=== PATIENT | male | born 2000 | race Two or more races ===

== ENCOUNTER 2024-08-13 19:15 | Inpatient (IN) | payer BC ==
[~2024-08-13] VITALS: Ht 177.8 cm; Wt 108.5 kg
[2024-08-13] MEDS ORDERED: acetaminophen 325mg tablet PO PRN ×4 (20:20→21:55)
[2024-08-13] MEDS ORDERED: magnesium hydroxide 30ml (MOM) UD suspension PO PRN ×2 (20:20→20:55)
[2024-08-13] MEDS ORDERED: mag hydrox/Alum hydrox/simeth 30ml oral suspension PO PRN ×2 (20:20→20:55)
[2024-08-13] MEDS ORDERED: loperamide 2mg capsule PO PRN ×2 (20:55→21:55)
[2024-08-13] MEDS ORDERED: ondansetron 4mg rapidly disintigrating tab PO PRN (21:55)
[2024-08-13] MEDS ORDERED: diphenhydrAMINE 25mg capsule PO PRN (21:55)
[2024-08-13] MEDS: traZODone 50mg tablet PO PRN (22:26)
[2024-08-13] MEDS: chlorproMAZINE 25mg tablet PO PRN (22:26)
[2024-08-13 22:30] VITALS: RESP 16; O2SAT 98
[2024-08-13 22:41] VITALS: BP 131/77; PULSE 98; RESP 16; TEMP 98.7; O2SAT 98
[2024-08-13] MEDS: hydrOXYzine 25 MG tablet PO PRN (23:32)
[2024-08-13] MEDS: traZODone 50mg tablet PO ONE (23:34)
[2024-08-14] MEDS ORDERED: NO HOME MEDS (04:00)
[2024-08-14 07:00] VITALS: RESP 16; O2SAT 96
[2024-08-14 08:00] VITALS: BP 146/87; PULSE 110; RESP 16; TEMP 99.5; O2SAT 96
[2024-08-14 08:16] LABS: BASOPHILS # (AUTO) 0.1 X10'3 (0-0.2); BASOPHILS % (AUTO) 0.7 % (0-1); EOSINOPHILS # (AUTO) 0.1 X10'3 (0-0.9); EOSINOPHILS % (AUTO) 0.5 % (0-6); HEMATOCRIT 47.8 % (42.0-52.0); HEMOGLOBIN 16.9 g/dl (14.0-17.9); LYMPHOCYTES # (AUTO) 2.3 X10'3 (1.1-4.8); LYMPHOCYTES % (AUTO) 19.6 % (21-51); MEAN CORPUSCULAR HEMOGLOBIN 31.2 PG (27.0-31.0); MEAN CORPUSCULAR HGB CONC 35.3 g/dL (33.0-36.5); MEAN CORPUSCULAR VOLUME 88.3 FL (78-98); MEAN PLATELET VOLUME 8.9 FL (7.4-10.4); MONOCYTES # (AUTO) 0.9 X10'3 (0-0.9); MONOCYTES % (AUTO) 7.8 % (2-12); NEUTROPHILS # (AUTO) 8.4 X10'3 (1.8-7.7); NEUTROPHILS % (AUTO) 71.4 % (42-75); PLATELET COUNT 192 X10'3 (140-440); RED BLOOD COUNT 5.41 X10'6 (4.70-6.10); RED CELL DISTRIBUTION WIDTH 14.2 % (11.5-14.5); WHITE BLOOD COUNT 11.7 X10'3 (4.5-11.0)
[2024-08-14 08:59] LABS: ALANINE AMINOTRANSFERASE 78 U/L (12-78); ALBUMIN 3.3 G/DL (3.4-5.0); ALBUMIN/GLOBULIN RATIO 0.9 (1.1-1.5); ALKALINE PHOSPHATASE 59 IU/L (46-116); ANION GAP 10 (8-16); ASPARTATE AMINO TRANSFERASE 36 U/L (10-37); BILIRUBIN,TOTAL 0.5 MG/DL (0.1-1.0); BLOOD UREA NITROGEN 14 MG/DL (7-18); BUN/CREATININE RATIO 16.5 (10.0-20.0); CALCIUM 8.5 MG/DL (8.5-10.1); CHLORIDE 106 MMOL/L (99-107); CHOL/HDL RATIO 2.4 (0.00-4.99); CHOLESTEROL 161 MG/DL (0-200); CREATININE 0.85 MG/DL (0.60-1.10); GLUCOSE 105 MG/DL (70-104); HDL CHOLESTEROL 66 MG/DL (35-60); HEMOGLOBIN A1C 5.3 % (4.5-6.2); LDL CHOLESTEROL 80 MG/DL (50-100); POTASSIUM 3.7 MMOL/L (3.5-5.1); SODIUM 140 MMOL/L (135-145); TOTAL CARBON DIOXIDE 24.5 MMOL/L (24-32); TOTAL PROTEIN 6.9 G/DL (6.4-8.2); TRIGLYCERIDES 46 MG/DL (20-135); eCRCL 138 ML/MIN; eGFR > 90 ML/MIN
[2024-08-14] MEDS: acetaminophen 325mg tablet PO PRN (12:22)
[2024-08-14 19:00] VITALS: RESP 20; O2SAT 98
[2024-08-14] MEDS: mag hydrox/Alum hydrox/simeth 30ml oral suspension PO PRN (19:08)
[2024-08-14 20:02] VITALS: BP 133/80; PULSE 102; RESP 20; TEMP 98.4; O2SAT 96
[2024-08-15 07:00] VITALS: RESP 16; O2SAT 97
[2024-08-15] MEDS: pantoprazole 40mg Tablet.DR PO SCH (07:37)
[2024-08-15 08:00] VITALS: BP 116/60; PULSE 83; RESP 16; TEMP 99.1; O2SAT 97
[2024-08-15] MEDS: LORazepam 1 MG tablet PO ONE ×3 (11:10→20:38)
[2024-08-15 19:00] VITALS: RESP 18; O2SAT 95
[2024-08-15 20:08] VITALS: BP 133/80; PULSE 103; RESP 18; TEMP 98.2; O2SAT 95
[2024-08-15] MEDS: diphenhydrAMINE 25mg capsule PO SCH (20:38)
[2024-08-16 07:33] VITALS: BP 127/75; PULSE 82; RESP 16; TEMP 98.4; O2SAT 99
[2024-08-16 08:00] VITALS: RESP 16; O2SAT 99
[2024-08-16] MEDS: traMADol 50MG tablet PO ONE ×2 (09:31→12:20)
[2024-08-16 09:51] LABS: BASOPHILS # (AUTO) 0.1 X10'3 (0-0.2); BASOPHILS % (AUTO) 1.1 % (0-1); EOSINOPHILS # (AUTO) 0.1 X10'3 (0-0.9); LYMPHOCYTES % (AUTO) 23.2 % (21-51); MEAN PLATELET VOLUME 8.5 FL (7.4-10.4); MONOCYTES # (AUTO) 0.9 X10'3 (0-0.9); MONOCYTES % (AUTO) 10.4 % (2-12); NEUTROPHILS # (AUTO) 5.5 X10'3 (1.8-7.7); NEUTROPHILS % (AUTO) 64.3 % (42-75); PLATELET COUNT 210 X10'3 (140-440); WHITE BLOOD COUNT 8.6 X10'3 (4.5-11.0)
[2024-08-16 10:12] LABS: ALANINE AMINOTRANSFERASE 124 U/L (12-78); ALBUMIN 3.5 G/DL (3.4-5.0); ALBUMIN/GLOBULIN RATIO 0.9 (1.1-1.5); ALKALINE PHOSPHATASE 65 IU/L (46-116); ANION GAP 7 (8-16); ASPARTATE AMINO TRANSFERASE 38 U/L (10-37); BILIRUBIN,TOTAL 0.5 MG/DL (0.1-1.0); BLOOD UREA NITROGEN 13 MG/DL (7-18); BUN/CREATININE RATIO 12.9 (10.0-20.0); CALCIUM 8.9 MG/DL (8.5-10.1); CHLORIDE 105 MMOL/L (99-107); CREATININE 1.01 MG/DL (0.60-1.10); GLUCOSE 92 MG/DL (70-104); POTASSIUM 4.2 MMOL/L (3.5-5.1); SODIUM 138 MMOL/L (135-145); TOTAL CARBON DIOXIDE 25.7 MMOL/L (24-32); TOTAL PROTEIN 7.3 G/DL (6.4-8.2); eCRCL 116 ML/MIN; eGFR > 90 ML/MIN
[2024-08-16 10:18] LABS: LIPASE 25 U/L (16-77)
[2024-08-16 10:56] LABS: HEMOGLOBIN 17.9 g/dl (14.0-17.9); MEAN CORPUSCULAR HGB CONC 35.1 g/dL (33.0-36.5); MEAN CORPUSCULAR VOLUME 88.1 FL (78-98); RED BLOOD COUNT 5.79 X10'6 (4.70-6.10); RED CELL DISTRIBUTION WIDTH 14.1 % (11.5-14.5)
[2024-08-16 19:00] VITALS: RESP 18; O2SAT 98
[2024-08-16 19:36] VITALS: BP 128/80; PULSE 101; RESP 18; TEMP 97.7; O2SAT 98
[2024-08-16] MEDS: ibuprofen tablet 400 MG TABLET PO PRN (19:38)
[2024-08-17 07:30] VITALS: BP 77/53; PULSE 76; RESP 16; TEMP 97.8; O2SAT 96
[2024-08-17 07:44] VITALS: BP 118/88
[2024-08-17 08:00] VITALS: RESP 16; O2SAT 96
[2024-08-17 18:40] VITALS: RESP 16; O2SAT 97
[2024-08-17 19:39] VITALS: BP 133/81; PULSE 99; RESP 18; TEMP 97.9; O2SAT 97
[2024-08-17] MEDS: QUEtiapine 25mg tablet PO SCH (20:32)
[2024-08-18 07:00] VITALS: RESP 12; O2SAT 94
[2024-08-18 08:00] VITALS: BP 118/65; PULSE 74; RESP 12; TEMP 98.5; O2SAT 94
[2024-08-18] MEDS: diphenhydrAMINE 25mg capsule PO ONE (10:46)
[2024-08-18] MEDS: LIDOcaine 2% Viscous 15ml cup MM ONE (10:47)
[2024-08-18] MEDS: traMADol 50MG tablet PO PRN (14:29)
[2024-08-18 19:20] VITALS: RESP 18; O2SAT 97
[2024-08-18 19:27] VITALS: BP 148/84; PULSE 100; RESP 17; TEMP 97.8; O2SAT 97
[2024-08-18] MEDS: QUEtiapine 25mg tablet PO SCH (20:34)
[2024-08-18] MEDS: quetiapine 100mg tablet PO SCH (20:35)
[2024-08-18] MEDS: diatr meglu/diatrizoate 30ml oral sol.-(3 dose) bottle PO SCH (20:35)
[2024-08-19 07:00] VITALS: RESP 18; O2SAT 96
[2024-08-19] MEDS: pantoprazole 40mg Tablet.DR PO SCH (07:34)
[2024-08-19] MEDS: ESCITALOPRAM 10 mg tablet 10 MG TABLET PO SCH (07:34)
[2024-08-19 08:49] VITALS: BP 108/65; PULSE 61; RESP 18; TEMP 97.2; O2SAT 96
[2024-08-19] MEDS: gabapentin 400mg capsule PO SCH ×2 (16:55→21:00)
[2024-08-19 19:00] VITALS: RESP 20; O2SAT 98
[2024-08-19 20:00] VITALS: BP 115/80; PULSE 80; RESP 20; TEMP 97.6; O2SAT 98
[2024-08-20 07:00] VITALS: RESP 15; O2SAT 97
[2024-08-20 08:00] VITALS: BP 120/63; PULSE 67; RESP 15; TEMP 98.2; O2SAT 97
[2024-08-20 19:00] VITALS: RESP 14; O2SAT 96
[2024-08-20 20:00] VITALS: BP 135/75; PULSE 94; RESP 14; TEMP 98.9; O2SAT 96
[2024-08-21 07:00] VITALS: RESP 14; O2SAT 97
[2024-08-21 08:00] VITALS: BP 104/51; PULSE 71; RESP 14; TEMP 98.3; O2SAT 97
[2024-08-21] MEDS: ESCITALOPRAM 10 mg tablet 10 MG TABLET PO SCH (08:38)
[2024-08-21 19:00] VITALS: RESP 16; O2SAT 96
[2024-08-21 20:00] VITALS: BP 112/81; PULSE 103; RESP 16; TEMP 98.3; O2SAT 96
[2024-08-22 07:45] VITALS: RESP 16; O2SAT 97
[2024-08-22 08:00] VITALS: BP 91/60; PULSE 82; RESP 16; TEMP 97.8; O2SAT 97
[2024-08-22 19:23] VITALS: BP 118/70; PULSE 89; RESP 16; TEMP 97.9; O2SAT 97
[2024-08-22 20:00] VITALS: RESP 16; O2SAT 97
[2024-08-23 07:30] VITALS: BP 110/55; PULSE 82; RESP 16; TEMP 97.5; O2SAT 99
[2024-08-23 08:00] VITALS: RESP 16; O2SAT 99
[2024-08-23] MEDS: aripiprazole 5mg tablet PO SCH (08:19)
[2024-08-23] MEDS: diphenhydrAMINE 25mg capsule PO PRN (10:01)
[2024-08-23 19:00] VITALS: RESP 16; O2SAT 96
[2024-08-23 20:00] VITALS: BP 128/85; PULSE 80; RESP 16; TEMP 98.5; O2SAT 96
[2024-08-24 07:00] VITALS: RESP 18; O2SAT 97
[2024-08-24 08:00] VITALS: BP 93/66; PULSE 65; RESP 18; TEMP 98.4; O2SAT 97
[2024-08-24] MEDS ORDERED: ESCI-8 PO (15:45)
[2024-08-24] MEDS ORDERED: PANT40TA54 PO (15:45)
[2024-08-24] MEDS ORDERED: GABA-535 PO (15:45)
[2024-08-24] MEDS ORDERED: QUET100T34 PO (15:45)
[2024-08-24] MEDS ORDERED: ARIP5TAB53 PO (15:45)
[2024-08-24 19:00] VITALS: BP 122/91; PULSE 82; RESP 16; RESP 20; TEMP 98.8; O2SAT 97
== END 2024-08-24 19:50 | disposition home or self-care (01) | DRG 885 ==
LOC: ADULT MH 19:15 → UNDOADMIN 19:15 → ADULT MH 08-14 02:37
PROVIDERS: ADMIT Psychiatry & Neurology Psychiatry; ATTEND Psychiatry & Neurology Psychiatry
PROC: GZHZZZZ Group Psychotherapy (ICD-10-PCS; principal; 2024-08-24)
DX: F20.9 Schizophrenia, unspecified (principal); F06.1 Catatonic disorder due to known physiological condition; R45.851 Suicidal ideations; R10.13 Epigastric pain; F43.10 Post-traumatic stress disorder, unspecified; Z79.899 Other long term (current) drug therapy
CPT/HCPCS: 36415; 74018; 74176; 76700; 80053; 80061; 83036; 83690; 84484; 85025; 87081; 99285; Q0161; Q0163; Q0177; Q9963

== ENCOUNTER 2025-01-22 13:32 | Inpatient (IN) | payer BC, MEDICAID ==
[~2025-01-22] VITALS: Ht 177.8 cm; Wt 113.0 kg
[~2025-01-22 13:32] MED LIST: ARIP5TAB53 PO; ESCI-8 PO; GABA-535 PO; PANT40TA54 PO; QUET100T34 PO
[2025-01-22] MEDS ORDERED: magnesium hydroxide 30ml (MOM) UD suspension PO PRN (15:10)
[2025-01-22] MEDS ORDERED: loperamide 2mg capsule PO PRN (15:10)
[2025-01-22] MEDS ORDERED: PANT40TA54 PO (16:45)
[2025-01-22] MEDS ORDERED: QUET200T PO (16:45)
[2025-01-22] MEDS ORDERED: GABA-535 PO (16:45)
[2025-01-22] MEDS ORDERED: ESCI20TA39 PO (16:45)
[2025-01-22] MEDS ORDERED: ARIP5TAB12 PO (16:45)
[2025-01-22 19:00] VITALS: BP 144/92; PULSE 101; RESP 18; TEMP 97.3; O2SAT 95
[2025-01-22] MEDS: mag hydrox/Alum hydrox/simeth 30ml oral suspension PO PRN (20:27)
[2025-01-23 07:00] VITALS: RESP 16; O2SAT 95
[2025-01-23] MEDS: pantoprazole 40mg Tablet.DR PO SCH (07:07)
[2025-01-23 08:00] VITALS: BP 153/97; PULSE 100; RESP 16; TEMP 99.2; O2SAT 95
[2025-01-23 10:31] LABS: CHOL/HDL RATIO 3.3 (0.00-4.99); LDL CHOLESTEROL 105 MG/DL (50-100)
--- NOTE | 2025-01-23 15:52 | HISTORY AND PHYSICAL ---
History of Present Illness History of Present Illness H&P Admission date: 01/22/25 Length of stay: 1 day Status: 5150 CC: improving anxiety, being happier Admitted on 01/22/25 on a 5150 for danger to self, was acting erratically- stopped medication a few months ago. Endorses AH. Per nursing staff today he slept 0 hours last night- the entire night pacing in anel halls- shaking out his arms- was given trazodone 100 mg, hydroxyzine, has been pacing the halls this morning. States that he hasnt been happy recently, states he was brought to the hospital because he was really anxious. States he stopped the medication because he was feeling better states he doesn't want to be on medication. When asked if he would be willing to stay in the hospital on a voluntary basis, he stated he wants to get out of the hospital tomorrow. When asked if he was experiencing hallucinations he said no connor. Denies that he has mental health symptoms requiring hospitalization. States he will refuse to take medication while in the hospital, when asked why he said I get nervous. Psychiatric History Age of initial treatment: 23 for really bad anxiety Outpatient: not currently Inpatient: [facility] on 07/2024 for psychosis, previously hospitalized in [place], up to a total of 3-4 previous hospitalizations. 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 Access to firearms: denies Hx of suicide attempts: denies Hx of self-harm: hx of cutting wrists Hx of violence: denies Legal hx: deneis Current Psych Medications: none Historical Psych Medications: aripiprazole, gabapentin, escitalopram, quetiapine, vyvanse Substance Use History Over the counter medications: Caffeine: denies Nicotine: denies Alcohol: a beer (once per week) Cannabis: denies Stimulants: denies Opioids: denies Hx of IVDU: denies Other (Inhalants, Hypnotics, Hallucinogens, Rx): denies DUI: denies treatment/rehab hx: denies Gambling: denies No known hx of IVDU No known hx of meeting criteria for a substance use disorder Social history Born and raised [facility], parents , old brother. 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 Income/rent/concerns about paying bills or feeding family: Hx: denies Mental Status Evaluation General Appearance: disheveled hair, beanie sweat pants, Eye contact: intermittent Demeanor: hyperfocused on discharging, guarded Orientation: to person, place, time, situation Speech: Appropriate rate/rhythm/volume Psychomotor Activity: tense- pacing the unit Abnormal Body Movements: none observed Gait: steady Mood: anxious Affect:flat Suicidality: denies suicidal ideation Homicidally: denies Thought content: paranoia Thought process: disorganized Thought perceptions: auditory hallucinations/visual hallucinations Memory: impairment notable Attention: preoccupied Insight: poor Judgment: limited - Review of symptoms Denies malaise, other flu like symptoms Denies falls, fatigue, weakness, confusion, dizziness, memory loss Denies tingling/numbness, tremor Denies SOB, chest pain, palpitations, fainting Denies nausea, diarrhea, constipation Denies chronic pain All other systems reviewed negative - Current Medical Problems: None noted Medical History Cardiac HX: Denies TBI Hx: denies Seizure Hx: denies FAIZAN Hx: denies - Allergies: Coded Allergies: No Known Allergies (Unverified , 08/13/24) Past Family History Patient History: Patient reports no known family medical history. Past Social History Smoking: Quit less than 1 year Assessment/Plan Problems/Diagnosis: (1) Schizoaffective disorder, bipolar type Diagnoses Schizoaffective disorder, bipolar type, manic - Assessment Based on initial evaluation, including interview and history obtained today, patient appears to meet criteria for schizoaffective disorder, has been off his medication for a few months, was preoccupied on assessment- appeared to be interacting with unseen things in the room. Pacing the unit, did not sleep last night even with medication. Was guarded and paranoid, hyperfocused on going home. Will start paliperidone for treatment of schizoaffective disorder, current episode manic. Will start lorazepam to help with anxiety/agitation/sleep. Attained a limited degree of information from the patient today, will reach out to family to better understand his current illness. Safety risk: low risk of imminent self-harm, low risk of externalized violent behaviors Plan Start paliperidone ER 6 mg po QHS Start lorazepam 1 mg po Q6 hours for anxiety/agitation/sleep Continue Q15 min checks Continue Groups/Milieu Engagement Discharge Plan: to home with scheduled follow ups for outpatient therapy and medication management Access to firearms: Spent approximately 90 minutes reviewing records and test results, assessing and treatment planning, completing care coordination and documenting the encounter. Discussed risks, including possible adverse effects, and benefits of treatment recommendations including no treatment. Voice recognition software may have been used to dictate this note. There may be errors due to use of such software. Reporting of serious errors is appreciated. CODING VISIT-PSYCHIATRY Date of Service: Jan 23, 2025 Billing Provider: MARILYN VASQUEZ DNP Psych Common Visit Codes: [id number] DIAG EVAL W/MED SRVCS MARILYN VASQUEZ DNP Jan 23, 2025 15:51
[2025-01-23 19:38] VITALS: BP 162/95; PULSE 114; RESP 18; TEMP 98.7; O2SAT 97
--- NOTE | 2025-01-23 20:03 | CONSULTATION REPORT - RESIDENT ---
Consult Providers to CC Resident Creating Document: BAUTISTA HERNANDEZ, RES CC: ELISA GOLDSMITH MD History of Present Illness Reason for Admit\Complaint: ANXIETY History of Present Illness A 25-year-old male with no past medical history was admitted to the Mental Health unit in view of danger to self, erratic behavior and stopped taking medications few months ago. Patient endorsed anxiety, shaking of his arms and pacing in the halls on the morning of admission. Hospitalist team is following the patient for any medical complaints or past medical history. Allergies: Coded Allergies: No Known Allergies (Unverified , 08/13/24) Home Medications Home Medications Active Pantoprazole Sodium 40 Mg Tablet.dr 40 Mg PO BKF 30 Days Quetiapine Fumarate 100 Mg Tablet 150 Mg PO HS 30 Days Reported Gabapentin 400 Mg Capsule 1 Cap PO Q8H 30 Days Escitalopram Oxalate 20 Mg Tablet 1 Tab PO DAILY 30 Days Abilify* (Aripiprazole) 5 Mg Tablet 5 Mg PO DAILY Past Medical History Past Medical History Schizophrenia Past Surgical History Surgical History Comment None Family History Family History: Patient reports no known family medical history. Past Social History Social History Comment Denies alcohol, IV drug abuse, tobacco use Lives at home ROS ROS All other systems reviewed in full and negative except for the pertinent positives mentioned in HPI Exam Vitals: Vital Signs Date Time Temp Pulse Resp B/P (MAP) Pulse Ox O2 Delivery O2 Flow Rate FiO2 01/23/25 19:38 98.7 114 18 162/95 (117) 97 Room Air General: General: Alert, awake, oriented, not in acute distress HEENT: PERRLA, no icterus, pallor, lymphadenopathy, carotid bruit Respiratory system: Bilateral vesicular breath sounds heard, no adventitious breath sounds CVS: S1-S2 heard, no murmurs/rubs/gallop GI: Soft, nontender, no organomegaly, no guarding/rigidity, bowel sounds present Neuro: No focal neurological deficits present Extremities: No edema cyanosis clubbing/deformities Skin: Warm and dry Psych: Anxious, dull Additional Plan Assessment: A 25-year-old male with past medical history of schizophrenia presented to the ED in view of anxiety. Patient is admitted to the Mental Health unit in view of schizoaffective disorder, bipolar type. Hospitalist team is following the patient for any medical complaints. Plan: Schizoaffective disorder, bipolar type, manic Management per psychiatrist Mildly elevated LDL, does not require intervention at this moment Follow up with CBC with differential, CMP, urinalysis Disposition: Follow up with the above labs, continue care and psychiatric health unit. Hospitalist team we will continue to follow up with the patient's review labs that has been ordered today. Bautista Hernandez MD Internal Medicine, PGY 2 Date of Service: Jan 23, 2025 Billing Provider: ELISA GOLDSMITH MD, SIVA, RES Jan 23, 2025 20:03
[2025-01-23] MEDS: PALIPERIDONE 3 MG TAB.ER.24 PO SCH (20:19)
[2025-01-23 20:38] LABS: MEAN PLATELET VOLUME 8.5 FL (7.4-10.4); RED CELL DISTRIBUTION WIDTH 13.2 % (11.5-14.5)
[2025-01-23 20:55] LABS: CREATININE 1.32 MG/DL (0.60-1.10); TOTAL CARBON DIOXIDE 27.0 MMOL/L (24-32); eCRCL 88 ML/MIN; eGFR 66 ML/MIN
[2025-01-24 07:00] VITALS: RESP 16; O2SAT 95
[2025-01-24 08:00] VITALS: BP 144/115; PULSE 73; RESP 16; TEMP 99.4; O2SAT 95
--- NOTE | 2025-01-24 14:42 | PROGRESS NOTE ---
Progress Note Dictate Providers to CC ~ Progress Note: Admission date: 01/22/25 Length of stay: 2 days Status: 5150 HPI: Admitted on 01/22/25 on a 5150 for danger to self, was acting erratically- stopped medication a few months ago. Psychiatric History Age of initial treatment: 23 for really bad anxiety Outpatient: [facility] (missed last months appointment) Inpatient: [facility] on 07/2024 for psychosis, previously hospitalized in [place], up to a total of 3-4 previous hospitalizations. 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 Access to firearms: denies Hx of suicide attempts: denies Hx of self-harm: hx of cutting wrists Hx of violence: denies Legal hx: deneis Current Psych Medications: none Historical Psych Medications: aripiprazole, gabapentin, escitalopram, quetiapine, vyvanse Substance Use History Over the counter medications: Caffeine: denies Nicotine: denies Alcohol: a beer (once per week) Cannabis: denies Stimulants: denies Opioids: denies Hx of IVDU: denies Other (Inhalants, Hypnotics, Hallucinogens, Rx): denies DUI: denies treatment/rehab hx: denies Gambling: denies No known hx of IVDU No known hx of meeting criteria for a substance use disorder Social history Born and raised [facility], parents , old brother. Unstable childhood including some periods of homelessness, was primarily raised by mother who is bipolar. 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 HOSPITAL COURSE: Poor sleep 0-2 hours initial few days in the hospital, Today on Assessment: States he is really anxious today when asked what about he stated I dont know then directed his gaze to the floor and started to move his hands back and for like he was rolling out cookie dough. Endorses that he has had some really really bad anxiety with the stuff of life States he feels really suicidal, no specific plan. States he would like to stay in the hospital in order to feel better, I would like to stay until july or even longer Would like his dad to know that he dosnt want to leave until july or july. Endorses adequate. High energy pacing the unit. Psychiatric Medications: Paliperidone ER 6 mg po QHS Recent PRNS: Lorazepam 1 mg po prn q6 for anxiety Side Effects: Denies No evidence of TD, EPS AIMs: 0 Review of Psychiatric Symptoms: Mood: depressed, Suicide/self-harm: endorses today (denies plan and intent while hospitalized) Sleep: poor, 2 hours Appetite: adequate- eating three meals a day Energy: increased- pacing the unit Anxiety: high- Irritability: endorses Homicidal/Anger: denies Hallucinations/Paranoia: paranoia, hand gestures and facial expressions appear that he is responding to unseen things in the room Trauma symptoms: denies Symptoms related to substance withdrawal: denies Mental Status Evaluation General Appearance: disheveled hair, beanie sweat pants, Eye contact: intermittent Demeanor: hyperfocused on discharging, guarded Orientation: to person, place, time, situation Speech: Appropriate rate/rhythm/volume Psychomotor Activity: tense- pacing the unit Abnormal Body Movements: none observed Gait: steady Mood: anxious Affect: flat Suicidality: endorses suicidal ideation Homicidally: denies Thought content: paranoia Thought process: disorganized Thought perceptions: auditory hallucinations/visual hallucinations Memory: impairment notable Attention: preoccupied Insight: poor Judgment: limited - Review of symptoms Denies malaise, other flu like symptoms Denies falls, fatigue, weakness, confusion, dizziness, memory loss Denies tingling/numbness, tremor Denies SOB, chest pain, palpitations, fainting Denies nausea, diarrhea, constipation Denies chronic pain All other systems reviewed negative - Current Medical Problems: None noted Medical History Cardiac HX: Denies TBI Hx: denies Seizure Hx: denies FAIZAN Hx: denies Antibiotic Ordered?: No Objective Vitals Vital Signs Date Time Temp Pulse Resp B/P (MAP) Pulse Ox O2 Delivery O2 Flow Rate FiO2 01/24/25 08:00 99.4 73 16 144/115 (125) 95 Room Air Lab Results: 01/23/25203101/23/252031 Problem\\Assessment\\Plan Problems/Diagnosis: (1) Schizoaffective disorder, bipolar type Additional Plan Diagnoses Schizoaffective disorder, bipolar type, current episode manic Assessment Rufino is a 25 year old who presents for further evaluation and treatment of schizoaffective disorder, has been off his medication for a few months, remains preoccupied on assessment- appears to be interacting with unseen things in the room. He presented as distressed, endorsed SI today and requested today in the hospital until this next July. Pacing the unit, did not sleep last night even with medication. Was guarded and paranoid, hyperfocused on going home. Will continue paliperidone for treatment of schizoaffective disorder, current episode manic. Continue start lorazepam to help with anxiety/agitation/sleep. Safety risk: low risk of imminent self-harm, low risk of externalized violent behaviors Plan Continue paliperidone ER 6 mg po QHS (initial dose on 01/23/25) Continue lorazepam 1 mg po Q6 hours for anxiety/agitation/sleep Continue Q15 min checks Continue Groups/Milieu Engagement Discharge Plan: to home with scheduled follow ups for outpatient therapy and medication management Access to firearms: Spent approximately 60 minutes reviewing records and test results, assessing and treatment planning, completing care coordination and documenting the encounter. Discussed risks, including possible adverse effects, and benefits of treatment recommendations including no treatment. Voice recognition software may have been used to dictate this note. There may be errors due to use of such software. Reporting of serious errors is appreciated. CODING VISIT-PSYCHIATRY Date of Service: Jan 24, 2025 Billing Provider: MARILYN VASQUEZ DNP Psych Common Visit Codes: [id number] INP/OBS CARE(Mod) MARILYN VASQUEZ DNP Jan 24, 2025 14:42
[2025-01-24 19:00] VITALS: BP 142/81; PULSE 112; RESP 18; TEMP 98.9; O2SAT 98
[2025-01-25 07:00] VITALS: RESP 16; O2SAT 97
[2025-01-25 08:00] VITALS: BP 144/82; PULSE 84; RESP 16; TEMP 97.8; O2SAT 97
--- NOTE | 2025-01-25 10:40 | PROGRESS NOTE ---
Daily Progress Note Providers to CC ~ Antibiotic Timeout Antibiotic Ordered?: No MRSA Education MRSA Education Provided to pt: No Subjective Chief complaint none Review of systems is negative for all 10 systems reviewed Objective Vital Signs Date Time Temp Pulse Resp B/P (MAP) Pulse Ox O2 Delivery O2 Flow Rate FiO2 01/25/25 08:00 97.8 84 16 144/82 (102) 97 Room Air Result Diagram: 01/23/25203101/23/252031 HEENT normocephalic nontraumatic head PERRLA. EOMI. Respiratory system: Bilateral vesicular breath sounds heard, no adventitious breath sounds CVS: S1-S2 heard, no murmurs/rubs/gallop GI: Soft, nontender, no organomegaly, no guarding/rigidity, bowel sounds present Neuro: No focal neurological deficits present Extremities: No edema cyanosis clubbing/deformities Problem\Assessment\Plan Plan: Schizoaffective disorder, bipolar type, manic Management per psychiatrist Mildly elevated LDL, does not require intervention at this moment Medicine team will continue to follow up per protocol Date of Service: Jan 25, 2025 Billing Provider: NATALI DOHERTY MD Common Visit Codes: [id number] INP/OBS CARE(LOW) NATALI DOHERTY MD Jan 25, 2025 10:40
--- NOTE | 2025-01-25 14:16 | PROGRESS NOTE ---
Progress Note Dictate Providers to CC ~ Progress Note: Admission date: 01/22/25 Length of stay: 3 days Status: 5250 HPI: Admitted on 01/22/25 on a 5150 for danger to self, was acting erratically- stopped medication a few months ago. Psychiatric History Age of initial treatment: 23 for really bad anxiety Outpatient: [facility] (missed last months appointment) Inpatient: [facility] on 07/2024 for psychosis, previously hospitalized in [place], up to a total of 3-4 previous hospitalizations. 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 Access to firearms: denies Hx of suicide attempts: denies Hx of self-harm: hx of cutting wrists Hx of violence: denies Legal hx: deneis Current Psych Medications: none Historical Psych Medications: aripiprazole, gabapentin, escitalopram, quetiapine, vyvanse Substance Use History Over the counter medications: Caffeine: denies Nicotine: denies Alcohol: a beer (once per week) Cannabis: denies Stimulants: denies Opioids: denies Hx of IVDU: denies Other (Inhalants, Hypnotics, Hallucinogens, Rx): denies DUI: denies treatment/rehab hx: denies Gambling: denies No known hx of IVDU No known hx of meeting criteria for a substance use disorder Social history Born and raised [facility], parents , old brother. Unstable childhood including some periods of homelessness, was primarily raised by mother who is bipolar. 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 Current Environment Living Situation: with his dad in [place] for the past two years, states the last time he worked was two years, has a dog named bear. [place] Relationships: family Spiritual: God Hobbies/ Other interests: watching football, video games Hx: was briefly in the but left due to "bizarre behavior at age 18. HOSPITAL COURSE: Poor sleep 0-2 hours initial few days in the hospital, significant anxiety and distress- difficulty verbalizing the thought process. Pacing the unit, preoccupied with discharge, not engaged in treatment. Today on Assessment: States he is feeling better today, states that he just gets bad twitches and bad anxiety. States he doesn't have any mental health diagnosis and he is fine. States that yesterday when he asked to stay in the hospital until July it was because he was really anxious. Endorses paranoia, paranoia is a major thing (about people trying to hurt him). He remains hyperfocused on discharging. Continuing to make repetitive hand gestures- reaching up in to the air like he is grabbing something. Psychiatric Medications: Paliperidone ER 6 mg po QHS Recent PRNS: Hydroxyzine 50 mg prn- anxiety Lorazepam 1 mg po prn - anxiety Side Effects: Denies No evidence of TD, EPS AIMs: 0 Review of Psychiatric Symptoms: Mood: denies depression Suicide/self-harm: denies (states that yesterday he had SI but it was bad anxiety- his anxiety gets so high that he might do it) Sleep: 7 hours - sleeping better Appetite: adequate- eating three meals a day Energy: increased- pacing the unit Anxiety: high- racing thoughts- states his thoughts are going to fast to even explain them, will get shaky and twitchy, a common topic is like life and future denies panic Irritability: endorses Homicidal/Anger: denies Hallucinations/Paranoia: endorses paranoia today , is making hand gestures and facial expressions appear that he is responding to unseen things in the room Trauma symptoms: denies Symptoms related to substance withdrawal: denies Mental Status Evaluation General Appearance: disheveled hair, beanie sweat pants, malodorous Eye contact: intermittent Demeanor: hyperfocused on discharging, guarded Orientation: to person, place, time, situation Speech: Appropriate rate/rhythm/volume Psychomotor Activity: tense- pacing the unit Abnormal Body Movements: none observed Gait: steady Mood: anxious Affect: flat Suicidality: endorses suicidal ideation Homicidally: denies Thought content: paranoia Thought process: disorganized Thought perceptions: auditory hallucinations/visual hallucinations Memory: impairment notable Attention: preoccupied (alert and oriented x4) Insight: poor Judgment: limited - Review of symptoms Denies malaise, other flu like symptoms Denies falls, fatigue, weakness, confusion, dizziness, memory loss Denies tingling/numbness, tremor Denies SOB, chest pain, palpitations, fainting Denies nausea, diarrhea, constipation Denies chronic pain All other systems reviewed negative - Current Medical Problems: None noted Medical History Cardiac HX: Denies TBI Hx: denies Seizure Hx: denies FAIZAN Hx: denies Antibiotic Ordered?: No Objective Vitals Vital Signs Date Time Temp Pulse Resp B/P (MAP) Pulse Ox O2 Delivery O2 Flow Rate FiO2 01/25/25 08:00 97.8 84 16 144/82 (102) 97 Room Air Lab Results: 01/23/25203101/23/252031 Problem\\Assessment\\Plan Problems/Diagnosis: (1) Schizoaffective disorder, bipolar type Additional Plan Diagnoses Schizoaffective disorder, bipolar type, current episode manic Assessment Rufino is a 25 year old who presents for further evaluation and treatment of schizoaffective disorder, has been off his medication for a few months, remains acutely psychotic, preoccupied on assessment and still appears to be interacting with unseen things in the room. He has received two doses of paliperidone, sleep has improved, and was more engaged in interview assessment today. He minimized his distress verbalized yesterday (no longer endorsing SI). He remains highly guarded and paranoid, hyperfocused on going home. Will continue paliperidone for treatment of schizoaffective disorder, current episode manic. Will continue lorazepam to help with anxiety/agitation/sleep- has been able to communicate with nursing staff when anxiety becomes acute. Safety risk: low risk of imminent self-harm, low risk of externalized violent behaviors Plan Continue paliperidone ER 6 mg po QHS (initial dose on 01/23/25- anticipate increasing on 01/27) Continue lorazepam 1 mg po Q6 hours for anxiety/agitation/sleep Continue Q15 min checks Continue Groups/Milieu Engagement Discharge Plan: to home with scheduled follow ups for outpatient therapy and medication management No Access to firearms. Spent approximately 30 minutes reviewing records and test results, assessing and treatment planning, completing care coordination and documenting the encounter. Discussed risks, including possible adverse effects, and benefits of treatment recommendations including no treatment. Voice recognition software may have been used to dictate this note. There may be errors due to use of such software. Reporting of serious errors is appreciated. CODING VISIT-PSYCHIATRY Date of Service: Jan 25, 2025 Billing Provider: MARILYN VASQUEZ DNP Psych Common Visit Codes: [id number] INP/OBS CARE(Mod) MARILYN VASQUEZ DNP Jan 25, 2025 14:16
[2025-01-25 19:00] VITALS: RESP 16; O2SAT 95
[2025-01-25 20:00] VITALS: BP 130/77; PULSE 95; RESP 16; TEMP 98.9
[2025-01-26 07:00] VITALS: RESP 16; O2SAT 98
[2025-01-26 08:00] VITALS: BP 139/99; PULSE 121; RESP 16; TEMP 98.6; O2SAT 98
--- NOTE | 2025-01-26 15:40 | PROGRESS NOTE ---
Progress Note Dictate Providers to CC ~ Progress Note: Admission date: 01/22/25 Length of stay: 4 days Status: 5250 HPI: Admitted on 01/22/25 on a 5150 for danger to self, was acting erratically- stopped medication a few months ago. Psychiatric History Age of initial treatment: 23 for really bad anxiety Outpatient: [facility] (missed last months appointment) Inpatient: [facility] on 07/2024 for psychosis, previously hospitalized in [place], up to a total of 3-4 previous hospitalizations. 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 Access to firearms: denies Hx of suicide attempts: denies Hx of self-harm: hx of cutting wrists Hx of violence: denies Legal hx: deneis Current Psych Medications: none Historical Psych Medications: aripiprazole, gabapentin, escitalopram, quetiapine, vyvanse Substance Use History Over the counter medications: Caffeine: denies Nicotine: denies Alcohol: a beer (once per week) Cannabis: denies Stimulants: denies Opioids: denies Hx of IVDU: denies Other (Inhalants, Hypnotics, Hallucinogens, Rx): denies DUI: denies treatment/rehab hx: denies Gambling: denies No known hx of IVDU No known hx of meeting criteria for a substance use disorder Social history Born and raised [facility], parents , old brother. Unstable childhood including some periods of homelessness, was primarily raised by mother who is bipolar. 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 Current Environment Living Situation: with his dad in [place] for the past two years, states the last time he worked was two years, has a dog named bear. [place] Relationships: family Spiritual: God Hobbies/ Other interests: watching football, video games Hx: was briefly in the but left due to "bizarre behavior at age 18. HOSPITAL COURSE: Poor sleep 0-2 hours initial few days in the hospital, significant anxiety and distress- difficulty verbalizing the thought process. Pacing the unit, preoccupied with discharge, not engaged in treatment. Today on Assessment: States he is feeling really good states his plan is to return to therapy regularly and, I am 100% sure that nothing bad will happen again. States he needs someone to talk his feelings out with. States he feels ready to go home, wants to sign up for college. States his problem is he gets too excited and then there are racing thoughts and confusion. States he has been confused about life in general Has been overthinking things. Discussed that his dad is a big support system. Psychiatric Medications: Paliperidone ER 6 mg po QHS Recent PRNS: Hydroxyzine 50 mg prn- anxiety Lorazepam 1 mg po prn - anxiety Side Effects: Denies No evidence of TD, EPS AIMs: 0 Review of Psychiatric Symptoms: Mood: denies depression, he talked to his dad on the phone which has helped him feel more optimistic Suicide/self-harm: denies, (last time was two days ago thinks its triggered by anxiety) Sleep: poor Appetite: adequate- eating three meals a day Energy: increased- pacing the unit Anxiety: zero Irritability: endorses Homicidal/Anger: denies Hallucinations/Paranoia: ongoing paranoia, is still making hand gestures and facial expressions appear that he is responding to unseen things in the room Trauma symptoms: denies Symptoms related to substance withdrawal: denies Mental Status Evaluation General Appearance: disheveled hair, beanie sweat pants, malodorous Eye contact: intermittent Demeanor: hyperfocused on discharging, guarded Orientation: to person, place, time, situation Speech: Appropriate rate/rhythm/volume Psychomotor Activity: tense- pacing the unit Abnormal Body Movements: none observed Gait: steady Mood: anxious Affect: flat Suicidality: endorses suicidal ideation Homicidally: denies Thought content: paranoia Thought process: disorganized Thought perceptions: auditory hallucinations/visual hallucinations Memory: impairment notable Attention: preoccupied (alert and oriented x4) Insight: poor Judgment: limited - Review of symptoms Denies malaise, other flu like symptoms Denies falls, fatigue, weakness, confusion, dizziness, memory loss Denies tingling/numbness, tremor Denies SOB, chest pain, palpitations, fainting Denies nausea, diarrhea, constipation Denies chronic pain All other systems reviewed negative - Current Medical Problems: None noted Medical History Cardiac HX: Denies TBI Hx: denies Seizure Hx: denies FAIZAN Hx: denies Diagnoses Schizoaffective disorder, bipolar type, current episode manic Assessment Rufino is a 25 year old who presents for further evaluation and treatment of schizoaffective disorder, has been off his medication for a few months, remains acutely psychotic, preoccupied on assessment and still appears to be interacting with unseen things in the room. He has received three doses of paliperidone, sleep has improved, and was more engaged in interview assessment today, will further increase today. He remains highly guarded and paranoid, hyperfocused on going home. Will continue paliperidone for treatment of schizoaffective disorder, current episode manic. Will continue lorazepam to help with anxiety/agitation/sleep- has been able to communicate with nursing staff when anxiety becomes acute. Safety risk: low risk of imminent self-harm, low risk of externalized violent behaviors Plan Increase paliperidone ER from 6 to 9 mg po QHS Continue lorazepam 1 mg po Q6 hours for anxiety/agitation/sleep Continue Q15 min checks Continue Groups/Milieu Engagement Discharge Plan: to home with scheduled follow ups for outpatient therapy and medication management No Access to firearms. Spent approximately 30 minutes reviewing records and test results, assessing and treatment planning, completing care coordination and documenting the encounter. Discussed risks, including possible adverse effects, and benefits of treatment recommendations including no treatment. Voice recognition software may have been used to dictate this note. There may be errors due to use of such software. Reporting of serious errors is appreciated. Antibiotic Ordered?: No Objective Vitals Vital Signs Date Time Temp Pulse Resp B/P (MAP) Pulse Ox O2 Delivery O2 Flow Rate FiO2 01/26/25 08:00 98.6 121 16 139/99 (112) 98 Room Air Lab Results: 01/23/25203101/23/252031 Problem\\Assessment\\Plan Problems/Diagnosis: (1) Schizoaffective disorder, bipolar type CODING VISIT-PSYCHIATRY Date of Service: Jan 26, 2025 Billing Provider: MARILYN VASQUEZ DNP Psych Common Visit Codes: [id number] INP/OBS CARE(Mod) MARILYN VASQUEZ DNP Jan 26, 2025 15:40
[2025-01-26 19:00] VITALS: RESP 18; O2SAT 94
[2025-01-26 20:00] VITALS: BP 146/88; PULSE 128; RESP 18; TEMP 98; O2SAT 94
[2025-01-26] MEDS: PALIPERIDONE 3 MG TAB.ER.24 PO SCH (21:05)
[2025-01-27 07:00] VITALS: RESP 20; O2SAT 94
[2025-01-27 08:00] VITALS: BP 144/75; PULSE 127; RESP 20; TEMP 98.3; O2SAT 94
[2025-01-27] MEDS: HALLS - SOOTHE MENTHOL 1.8 MG cough drop LOZENGE MM PRN (11:47)
--- NOTE | 2025-01-27 13:06 | PROGRESS NOTE ---
Daily Progress Note Providers to CC ~ Antibiotic Timeout Antibiotic Ordered?: No Subjective Chief complaint I have a really bad cold and he has some cough drops I need something to help it get better Objective Vital Signs Date Time Temp Pulse Resp B/P (MAP) Pulse Ox O2 Delivery O2 Flow Rate FiO2 01/27/25 08:00 98.3 127 20 144/75 (98) 94 Room Air Result Diagram: 01/23/25203101/23/252031 HEENT normocephalic nontraumatic head PERRLA. EOMI. Patient's sounds nasal and congested Respiratory system: Bilateral vesicular breath sounds heard, no adventitious breath sounds CVS: S1-S2 heard, no murmurs/rubs/gallop GI: Soft, nontender, no organomegaly, no guarding/rigidity, bowel sounds present Neuro: No focal neurological deficits present Extremities: No edema cyanosis clubbing/deformities Problem\Assessment\Plan Plan: Schizoaffective disorder, bipolar type, manic Management per psychiatrist Mildly elevated LDL, does not require intervention at this moment Upper respiratory tract infection probably viral we will start the patient on Mucinex And cough drops Medicine team will continue to follow up per protocol Date of Service: Jan 27, 2025 Billing Provider: NATALI DOHERTY MD Common Visit Codes: [id number] INP/OBS CARE(LOW) NATALI DOHERTY MD Jan 27, 2025 13:06
[2025-01-27 13:52] VITALS: PULSE 98; RESP 14
--- NOTE | 2025-01-27 15:04 | ELECTROCARDIOGRAPH REPORT ---
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 KURT Coello Measurements Intervals [place] Rate: 115 P: 75 WA: 131 QRS: 78 QRSD: 100 T: -38 QT: 318 QTc: 440 Interpretive Statements Sinus tachycardia Borderline repolarization abnormality Electronically Signed On 01-27-2025 15:51:[address] KURT Coello Please click the below link to view image of tracing.
--- NOTE | 2025-01-27 15:28 | PROGRESS NOTE ---
Progress Note Dictate Providers to CC ~ Progress Note: Follow up Admission date: 01/22/25 Length of stay: 5 days Status: 5250 HPI: Admitted on 01/22/25 on a 5150 for danger to self, was acting erratically- stopped medication a few months ago. Psychiatric History Age of initial treatment: 23 for really bad anxiety Outpatient: [facility] (missed last months appointment) Inpatient: [facility] on 07/2024 for psychosis, previously hospitalized in [place], up to a total of 3-4 previous hospitalizations. 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 Access to firearms: denies Hx of suicide attempts: denies Hx of self-harm: hx of cutting wrists Hx of violence: denies Legal hx: deneis Historical Psych Medications: aripiprazole, gabapentin, escitalopram, quetiapine, vyvanse Substance Use History Over the counter medications: Caffeine: denies Nicotine: denies Alcohol: a beer (once per week) Cannabis: denies Stimulants: denies Opioids: denies Hx of IVDU: denies Other (Inhalants, Hypnotics, Hallucinogens, Rx): denies DUI: denies treatment/rehab hx: denies Gambling: denies No known hx of IVDU No known hx of meeting criteria for a substance use disorder Social history Born and raised [place], parents , old brother. Unstable childhood including some periods of homelessness, was primarily raised by mother who is bipolar. 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 Current Environment Living Situation: with his dad in [place] for the past two years, states the last time he worked was two years, has a dog named bear. [place] Relationships: family Spiritual: God Hobbies/ Other interests: watching football, video games Hx: was briefly in the but left due to "bizarre behavior at age 18. HOSPITAL COURSE: Poor sleep 0-2 hours initial few days in the hospital, significant anxiety and distress- difficulty verbalizing the thought process. Pacing the unit, preoccupied with discharge, not engaged in treatment. Improvement in positive symptoms of schizophrenia. Today on Assessment: He remains focused on going home, would like to sign up for college classes. States his problem is he gets too excited and then there are racing thoughts and confusion. States he has been confused about life in general Has been overthinking things. Discussed that his dad is a big support system. Psychiatric Medications: Paliperidone ER 9 mg po QHS Recent PRNS: Hydroxyzine 50 mg prn- anxiety Lorazepam 1 mg po prn - anxiety Side Effects: Denies No evidence of TD, EPS AIMs: 0 Review of Psychiatric Symptoms: Mood: denies depression, he talked to his dad on the phone which has helped him feel more optimistic Suicide/self-harm: denies Sleep: poor Appetite: adequate- eating three meals a day Energy: increased- pacing the unit Anxiety: zero Irritability: endorses Homicidal/Anger: denies Hallucinations/Paranoia: lessened, still preoccupied Trauma symptoms: denies Symptoms related to substance withdrawal: denies Mental Status Evaluation General Appearance: disheveled hair, beanie sweat pants, malodorous Eye contact: intermittent Demeanor: hyperfocused on discharging, guarded Orientation: to person, place, time, situation Speech: Appropriate rate/rhythm/volume Psychomotor Activity: tense- pacing the unit Abnormal Body Movements: none observed Gait: steady Mood: anxious Affect: flat Suicidality: endorses suicidal ideation Homicidally: denies Thought content: paranoia, poverty of thought Thought process: disorganized Thought perceptions: none noted Memory: impairment notable Attention: preoccupied (alert and oriented x4) Insight: fair Judgment: fair - Review of symptoms Denies malaise, other flu like symptoms Denies falls, fatigue, weakness, confusion, dizziness, memory loss Denies tingling/numbness, tremor Denies SOB, chest pain, palpitations, fainting Denies nausea, diarrhea, constipation Denies chronic pain All other systems reviewed negative - Current Medical Problems: None noted Medical History Cardiac HX: Denies TBI Hx: denies Seizure Hx: denies FAIZAN Hx: denies Diagnoses Schizoaffective disorder, bipolar type, current episode manic Assessment Rufino is a 25 year old who presents for further evaluation and treatment of schizoaffective disorder, has been off his medication for a few months, psychotic symptoms continue to improve, is preoccupied on assessment, ongoing negative symptoms include flat affect, poverty of thought/speech, avolition. He remains highly guarded and paranoid, hyperfocused on going home. Will continue paliperidone for treatment of schizoaffective disorder, will initiate treatment with [facility] on . Will continue lorazepam to help with anxiety/agitation/sleep- has been able to communicate with nursing staff when anxiety becomes acute. Safety risk: low risk of imminent self-harm, low risk of externalized violent behaviors Plan Start Invega [facility] 234 mg IM Thursday before discharge Continue paliperidone ER 9 mg po QHS Continue lorazepam 1 mg po Q6 hours for anxiety/agitation/sleep Continue Q15 min checks Continue Groups/Milieu Engagement Discharge Plan: [facility] before discharge Thursday Schedule follow up for thursday02/10/25 for second loading dose of invega 156 mg IM Filed a Writ to appeal [id number] - discussed plan to d/c thursday to home with scheduled follow ups for outpatient therapy and medication management No Access to firearms. Spent approximately 45 minutes reviewing records and test results, assessing and treatment planning, completing care coordination and documenting the encounter. Discussed risks, including possible adverse effects, and benefits of treatment recommendations including no treatment. Voice recognition software may have been used to dictate this note. There may be errors due to use of such software. Reporting of serious errors is appreciated. Antibiotic Ordered?: No Objective Vitals Vital Signs Date Time Temp Pulse Resp B/P (MAP) Pulse Ox O2 Delivery O2 Flow Rate FiO2 01/27/25 13:52 98 14 01/27/25 08:00 98.3 144/75 (98) 94 Room Air Lab Results: 01/23/25203101/23/252031 Problem\\Assessment\\Plan Problems/Diagnosis: (1) Schizoaffective disorder, bipolar type CODING VISIT-PSYCHIATRY Date of Service: Jan 27, 2025 Billing Provider: MARILYN VASQUEZ DNP Psych Common Visit Codes: [id number] INP/OBS CARE(Mod) MARILYN VASQUEZ DNP Jan 27, 2025 15:28
[2025-01-27 19:00] VITALS: RESP 18; O2SAT 96
[2025-01-27 20:00] VITALS: BP 143/98; PULSE 113; RESP 16; TEMP 98.2; O2SAT 96
[2025-01-27] MEDS: guaiFENesin ER 600mg tablet PO SCH (20:55)
[2025-01-28 07:00] VITALS: RESP 15; O2SAT 97
[2025-01-28 08:33] VITALS: BP 119/69; PULSE 103; RESP 15; TEMP 98.6; O2SAT 97
--- NOTE | 2025-01-28 17:44 | PROGRESS NOTE ---
Progress Note Dictate Providers to CC ~ Progress Note: Admission date: 01/22/25 Length of stay: 6 days Status: 5250 HPI: Admitted on 01/22/25 on a 5150 for danger to self, was acting erratically- stopp ed medication a few months ago. Psychiatric History Age of initial treatment: 23 for really bad anxiety Outpatient: [facility] (missed last months appointment) Inpatient: [facility] on 07/2024 for psychosis, previously hospitalized in [place], up to a total of 3-4 previous hospitalizations. 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 Access to firearms: denies Hx of suicide attempts: denies Hx of self-harm: hx of cutting wrists Hx of violence: denies Legal hx: deneis Historical Psych Medications: aripiprazole, gabapentin, escitalopram, quetiapine, vyvanse Substance Use History Over the counter medications: Caffeine: denies Nicotine: denies Alcohol: a beer (once per week) Cannabis: denies Stimulants: denies Opioids: denies Hx of IVDU: denies Other (Inhalants, Hypnotics, Hallucinogens, Rx): denies DUI: denies treatment/rehab hx: denies Gambling: denies No known hx of IVDU No known hx of meeting criteria for a substance use disorder Social history Born [place] raised [place], parents , old brother. Unstable childhood including some periods of homelessness, was primarily raised by mother who is bipolar. 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 Current Environment Living Situation: with his dad in [place] for the past two years, states the last time he worked was two years, has a dog named bear. [place] Relationships: family Spiritual: God Hobbies/ Other interests: watching football, video games Hx: was briefly in the but left due to "bizarre behavior at age 18. HOSPITAL COURSE: Poor sleep 0-2 hours initial few days in the hospital, significant anxiety and distress- difficulty verbalizing the thought process. Pacing the unit, preoccupied with discharge, not engaged in treatment. Improvement in positive symptoms of schizophrenia. Today on Assessment: He remains focused on going home, would like to sign up for college classes. States his problem is he gets too excited and then there are racing thoughts and confusion. States he has been confused about life in general Has been overthinking things. Discussed that his dad is a big support system. Psychiatric Medications: Paliperidone ER 9 mg po QHS Recent PRNS: Trazodone Side Effects: Denies No evidence of TD, EPS AIMs: 0 Review of Psychiatric Symptoms: Mood: denies depression, he talked to his dad on the phone which has helped him feel more optimistic Suicide/self-harm: denies Sleep: poor Appetite: adequate- eating three meals a day Energy: increased- pacing the unit Anxiety: zero (but will ask for anxiety medication from nursing staff) Irritability: endorses Homicidal/Anger: denies Hallucinations/Paranoia: lessened, still preoccupied Trauma symptoms: denies Symptoms related to substance withdrawal: denies Mental Status Evaluation General Appearance: disheveled hair, beanie sweat pants, malodorous Eye contact: intermittent Demeanor: hyperfocused on discharging, guarded Orientation: to person, place, time, situation Speech: Appropriate rate/rhythm/volume Psychomotor Activity: tense- pacing the unit Abnormal Body Movements: none observed Gait: steady Mood: anxious Affect: flat Suicidality: endorses suicidal ideation Homicidally: denies Thought content: paranoia, poverty of thought Thought process: disorganized Thought perceptions: none noted Memory: impairment notable Attention: preoccupied (alert and oriented x4) Insight: fair Judgment: fair - Review of symptoms Denies malaise, other flu like symptoms Denies falls, fatigue, weakness, confusion, dizziness, memory loss Denies tingling/numbness, tremor Denies SOB, chest pain, palpitations, fainting Denies nausea, diarrhea, constipation Denies chronic pain All other systems reviewed negative - Current Medical Problems: None noted Medical History Cardiac HX: Denies TBI Hx: denies Seizure Hx: denies FAIZAN Hx: denies Diagnoses Schizoaffective disorder, bipolar type, current episode manic Assessment Rufino is a 25 year old who presents for further evaluation and treatment of schizoaffective disorder, has been off his medication for a few months, psychotic symptoms continue to improve, is preoccupied on assessment, ongoing negative symptoms include flat affect, poverty of thought/speech, avolition. He remains highly guarded and paranoid, hyperfocused on going home. Will continue paliperidone for treatment of schizoaffective disorder, will initiate treatment with [facility] on Thursday. Will Discontinue lorazepam to help with anxiety/agitation/sleep and start clonidine as needed- HR and BP have been periodically high, EKG wnl. Safety risk: low risk of imminent self-harm, low risk of externalized violent behaviors Plan Start clonidine as needed for anxiety Start Invega [facility] 234 mg IM Thursday before discharge Continue paliperidone ER 9 mg po QHS Discontinue lorazepam 1 mg po Q6 hours for anxiety/agitation/sleep Continue Q15 min checks Continue Groups/Milieu Engagement Discharge Plan: [facility] before discharge Thursday Schedule follow up for thursday02/10/25 for second loading dose of invega 156 mg IM to home with scheduled follow ups for outpatient therapy and medication management No Access to firearms. Spent approximately 30 minutes reviewing records and test results, assessing and treatment planning, completing care coordination and documenting the encounter. Discussed risks, including possible adverse effects, and benefits of treatment recommendations including no treatment. Voice recognition software may have been used to dictate this note. There may be errors due to use of such software. Reporting of serious errors is appreciated. Antibiotic Ordered?: No Objective Vitals Vital Signs Date Time Temp Pulse Resp B/P (MAP) Pulse Ox O2 Delivery O2 Flow Rate FiO2 01/28/25 08:33 98.6 103 15 119/69 (86) 97 Room Air Problem\\Assessment\\Plan Problems/Diagnosis: (1) Schizoaffective disorder, bipolar type CODING VISIT-PSYCHIATRY Date of Service: Jan 28, 2025 Billing Provider: MARILYN VASQUEZ DNP Psych Common Visit Codes: [id number] INP/OBS CARE(Mod) MARILYN VASQUEZ DNP Jan 28, 2025 17:43
[2025-01-28 19:00] VITALS: RESP 16; O2SAT 94
[2025-01-28 20:21] VITALS: BP 165/86; PULSE 118; RESP 16; TEMP 96.8; O2SAT 94
[2025-01-29 07:00] VITALS: RESP 16; O2SAT 95
[2025-01-29 08:00] VITALS: BP 148/86; PULSE 100; RESP 16; TEMP 98.1; O2SAT 95
--- NOTE | 2025-01-29 17:31 | PROGRESS NOTE ---
Progress Note Dictate Providers to CC ~ Progress Note: Follow up Admission date: 01/22/25 Length of stay: 7 days Status: 5250 HPI: Admitted on 01/22/25 on a 5150 for danger to self, was acting erratically- stopped medication a few months ago. Psychiatric History Age of initial treatment: 23 for really bad anxiety Outpatient: [facility] (missed last months appointment) Inpatient: [facility] on 07/2024 for psychosis, previously hospitalized in [place], up to a total of 3-4 previous hospitalizations. 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 Access to firearms: denies Hx of suicide attempts: denies Hx of self-harm: hx of cutting wrists Hx of violence: denies Legal hx: deneis Historical Psych Medications: aripiprazole, gabapentin, escitalopram, quetiapine, vyvanse Substance Use History Over the counter medications: Caffeine: denies Nicotine: denies Alcohol: a beer (once per week) Cannabis: denies Stimulants: denies Opioids: denies Hx of IVDU: denies Other (Inhalants, Hypnotics, Hallucinogens, Rx): denies DUI: denies treatment/rehab hx: denies Gambling: denies No known hx of IVDU No known hx of meeting criteria for a substance use disorder Social history [place], parents , old brother. Unstable childhood including some periods of homelessness, was primarily raised by mother who is bipolar. 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 Current Environment Living Situation: with his dad in [place] for the past two years, states the last time he worked was two years, has a dog named bear. [place] Relationships: family Spiritual: God Hobbies/ Other interests: watching football, video games Hx: was briefly in the but left due to "bizarre behavior at age 18. HOSPITAL COURSE: Poor sleep 0-2 hours initial few days in the hospital, significant anxiety and distress- difficulty verbalizing the thought process. Pacing the unit, preoccupied with discharge, not engaged in treatment. Improvement in positive symptoms of schizophrenia. Today on Assessment: He has been taking it day by day, states he likes talking to people learning about their stories, and talking to people helps. States day to day he likes to play with his dog, play video games, and watch TV. Psychiatric Medications: Paliperidone ER 9 mg po QHS Recent PRNS: Trazodone Side Effects: Denies No evidence of TD, EPS AIMs: 0 Review of Psychiatric Symptoms: Mood: denies depression, reasons to live: finding new things to enjoy in life like new books, new sports, learning. Suicide/self-harm: denies Sleep: poor Appetite: adequate- eating three meals a day Energy: increased- pacing the unit Anxiety: zero (but will ask for anxiety medication from nursing staff) Irritability: endorses Homicidal/Anger: denies Hallucinations/Paranoia: lessened, still preoccupied- still making flicking hand gestures occasionally Trauma symptoms: denies Symptoms related to substance withdrawal: denies Mental Status Evaluation General Appearance: disheveled hair, beanie sweat pants, malodorous Eye contact: intermittent Demeanor: hyperfocused on discharging, guarded Orientation: to person, place, time, situation Speech: Appropriate rate/rhythm/volume Psychomotor Activity: tense- pacing the unit Abnormal Body Movements: none observed Gait: steady Mood: anxious Affect: flat Suicidality: endorses suicidal ideation Homicidally: denies Thought content: paranoia, poverty of thought Thought process: disorganized Thought perceptions: none noted Memory: impairment notable Attention: preoccupied (alert and oriented x4) Insight: fair Judgment: fair - Review of symptoms Denies malaise, other flu like symptoms Denies falls, fatigue, weakness, confusion, dizziness, memory loss Denies tingling/numbness, tremor Denies SOB, chest pain, palpitations, fainting Denies nausea, diarrhea, constipation Denies chronic pain All other systems reviewed negative - Current Medical Problems: None noted Medical History Cardiac HX: Denies TBI Hx: denies Seizure Hx: denies FAIZAN Hx: denies Diagnoses Schizoaffective disorder, bipolar type, current episode manic Assessment Rufino is a 25 year old who presents for further evaluation and treatment of schizoaffective disorder, has been off his medication for a few months, psychotic symptoms continue to improve, is preoccupied on assessment, ongoing ne gative symptoms include flat affect, poverty of thought/speech, avolition, sterotypie hand gestures still occurring. He remains highly guarded and hyperfocused on going home. Will increase paliperidone for treatment of schizoaffective disorder, will initiate treatment with [facility] on Thursday. Will continue clonidine as needed for anxiety- HR and BP have been periodically high, EKG wnl. Will schedule trazodone for sleep, has found effective. Safety risk: low risk of imminent self-harm, low risk of externalized violent behaviors Plan Continue clonidine 0.1 as needed for anxiety TID Start Invega [facility] 234 mg IM Thursday before discharge Increase paliperidone ER from 9 to 12 mg po QHS Schedule trazodone 50 mg for sleep Continue Q15 min checks Continue Groups/Milieu Engagement Discharge Plan: [facility] before discharge Thursday AM Schedule follow up for thursday02/10/25 for second loading dose of invega 156 mg IM to home with scheduled follow ups for outpatient therapy and medication management No Access to firearms. Spent approximately 30 minutes reviewing records and test results, assessing and treatment planning, completing care coordination and documenting the encounter. Discussed risks, including possible adverse effects, and benefits of treatment recommendations including no treatment. Voice recognition software may have been used to dictate this note. There may be errors due to use of such software. Reporting of serious errors is appreciated. Antibiotic Ordered?: No Objective Vitals Vital Signs Date Time Temp Pulse Resp B/P (MAP) Pulse Ox O2 Delivery O2 Flow Rate FiO2 01/29/25 08:00 98.1 100 16 148/86 (106) 95 Room Air Problem\\Assessment\\Plan Problems/Diagnosis: (1) Schizoaffective disorder, bipolar type CODING VISIT-PSYCHIATRY Date of Service: Jan 29, 2025 Billing Provider: MARILYN VASQUEZ DNP Psych Common Visit Codes: [id number] INP/OBS CARE(Mod) MARILYN VASQUEZ DNP Jan 29, 2025 17:31
--- NOTE | 2025-01-29 17:50 | PROGRESS NOTE- Residence ---
Progress Note - Resident Providers to CC Resident Creating Document: NICOLE ALVAREZ RES ~ Antibiotic Timeout Antibiotic Ordered?: No Subjective Patient seen and examined today. Comfortably sitting in the bed. Complains of cough with greenish sputum for the last 4-5 days. Also complains of sudden pain in the left leg but does not get worse with walking. No other complaints Objective Vital Signs Date Time Temp Pulse Resp B/P (MAP) Pulse Ox O2 Delivery O2 Flow Rate FiO2 01/29/25 08:00 98.1 100 16 148/86 (106) 95 Room Air General: Awake and alert HEENT: Normocephalic and atraumatic. Pupils equal round and reactive to light and accommodation. Extraocular movements intact. Oral and nasal mucosa moist Neck: Trachea is in midline. No masses or JVD Lungs: Bilateral normal breath sounds. No crackles, rhonchi or wheezes Heart: Regular rate and rhythm. S1-S2 normal. No rubs or murmurs Abdomen: Soft, nontender and nondistended. Bowel sounds present REPROGRAPHICS TECHNICIAN: No gross sensory or motor abnormalities. CN II to XII grossly intact Extremities: No cyanosis, clubbing or edema. No signs of any acute infection or swelling Skin: Warm and dry Plan Plan Cough with green sputum Chest x-ray ordered No elevated temperatures CBC on 01/23 slightly elevated-12.8 Repeat CBC ordered Will start antibiotics if chest x-ray shows any opacifications On Mucinex 1200 mg p.o. q.12h On menthol drops Acute kidney injury Creatinine on 01/23- 1.32 Repeat CMP ordered Hyperlipidemia LDL 110 Requires lifestyle modifications Schizoaffective disorder, bipolar type, manic Management per psychiatrist Nicole Alvarez MD Internal Medicine Resident, PGY 3 Date of Service: Jan 29, 2025 Billing Provider: ELISA GOLDSMITH MD, MANOJNA RES Jan 29, 2025 17:50
--- NOTE | 2025-01-29 18:51 | RADIOLOGY REPORT ---
DI CHEST,TWO VIEWS INDICATION: Cough with green sputum TECHNIQUE: Two views of the chest COMPARISON: None FINDINGS/IMPRESSION: LUNGS: No pleural effusion, consolidation, or pneumothorax MEDIASTINUM: Unremarkable BONES: No acute osseous abnormality OTHER: None
[2025-01-29 19:00] VITALS: RESP 18; O2SAT 94
[2025-01-29 20:00] VITALS: BP 130/83; PULSE 100; RESP 18; TEMP 97.8; O2SAT 94
[2025-01-29 20:45] LABS: CREATININE 1.16 MG/DL (0.60-1.10); TOTAL CARBON DIOXIDE 27.2 MMOL/L (24-32); eCRCL 101 ML/MIN; eGFR 77 ML/MIN
[2025-01-29] MEDS: PALIPERIDONE 3 MG TAB.ER.24 PO SCH (20:55)
[2025-01-29 21:21] LABS: MEAN PLATELET VOLUME 9.7 FL (7.4-10.4); RED CELL DISTRIBUTION WIDTH 13.0 % (11.5-14.5)
[2025-01-29 21:47] LABS: EOSINOPHILS % (MANUAL) 1.0 % (0-6); LYMPHOCYTES % (MANUAL) 25.0 % (21-51); MONOCYTES % (MANUAL) 10.0 % (2-12); NEUTROPHILS % (MANUAL) 64.0 % (42-75)
[2025-01-29 21:48] LABS: PLATELET ESTIMATE NORMAL
[2025-01-30 07:00] VITALS: RESP 18; O2SAT 96
[2025-01-30 08:00] VITALS: BP 121/61; PULSE 88; RESP 18; TEMP 98.2; O2SAT 96
[2025-01-30] MEDS ORDERED: HYDR-3686 PO (15:50)
[2025-01-30] MEDS ORDERED: TRAZ-251 PO ×2 (15:50→15:51)
--- NOTE | 2025-01-30 15:57 | PROGRESS NOTE ---
Progress Note Dictate Providers to CC ~ Progress Note: Status: 5250 HPI: Admitted on 01/22/25 on a 5150 for danger to self, was acting erratically- stopped medication a few months ago. Psychiatric History Age of initial treatment: 23 for really bad anxiety Outpatient: [facility] (missed last months appointment) Inpatient: [facility] on 07/2024 for psychosis, previously hospitalized in [place], up to a total of 3-4 previous hospitalizations. 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 Access to firearms: denies Hx of suicide attempts: denies Hx of self-harm: hx of cutting wrists Hx of violence: denies Legal hx: deneis Historical Psych Medications: aripiprazole, gabapentin, escitalopram, quetiapine, vyvanse Substance Use History Over the counter medications: Caffeine: denies Nicotine: denies Alcohol: a beer (once per week) Cannabis: denies Stimulants: denies Opioids: denies Hx of IVDU: denies Other (Inhalants, Hypnotics, Hallucinogens, Rx): denies DUI: denies treatment/rehab hx: denies Gambling: denies No known hx of IVDU No known hx of meeting criteria for a substance use disorder Social history Born and raised [facility], parents , old brother. Unstable childhood including some periods of homelessness, was primarily raised by mother who is bipolar. 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 Current Environment Living Situation: with his dad in [place] for the past two years, states the last time he worked was two years, has a dog named bear. [place] Relationships: family Spiritual: God Hobbies/ Other interests: watching football, video games Hx: was briefly in the but left due to "bizarre behavior at age 18. HOSPITAL COURSE: Poor sleep 0-2 hours initial few days in the hospital, significant anxiety and distress- difficulty verbalizing the thought process. Pacing the unit, preoccupied with discharge, not engaged in treatment. Improvement in positive symptoms of schizophrenia with titration of paliperidone. Today on Assessment: He wants to move forward with an independent life. Motivated for his future- would like to be a vet or a rivet hole machine operator. States he has been in multiple mental health hospitals and would like to move forward with his life. States he feels like he needs to stay on medication until he can have a better understanding. States his high anxiety lead to admission. Psychiatric Medications: Paliperidone ER 12 mg po QHS Trazodone Recent PRNS: Hydroxyzine - anxiety Side Effects: Denies No evidence of TD, EPS AIMs: 0 Review of Psychiatric Symptoms: Mood: denies depression, reasons to live: finding new things to enjoy in life like new books, new sports, learning. Suicide/self-harm: denies Sleep: good Appetite: adequate- eating three meals a day Energy: increased- pacing the unit Anxiety: denies anxiety today, has been talking wtih his peers and feels no longer worried about what to do because has more plans. Irritability: endorses Homicidal/Anger: denies Hallucinations/Paranoia: lessened, still preoccupied- still making sligyht flicking hand gestures occasionally Trauma symptoms: denies Symptoms related to substance withdrawal: denies Mental Status Evaluation General Appearance: disheveled hair, beanie sweat pants, malodorous Eye contact: intermittent Demeanor: hyperfocused on discharging, guarded Orientation: to person, place, time, situation Speech: Appropriate rate/rhythm/volume Psychomotor Activity: tense- pacing the unit Abnormal Body Movements: none observed Gait: steady Mood: anxious Affect: flat Suicidality: endorses suicidal ideation Homicidally: denies Thought content: paranoia, poverty of thought Thought process: disorganized Thought perceptions: none noted Memory: impairment notable Attention: preoccupied (alert and oriented x4) Insight: fair Judgment: fair - Review of symptoms Denies malaise, other flu like symptoms Denies falls, fatigue, weakness, confusion, dizziness, memory loss Denies tingling/numbness, tremor Denies SOB, chest pain, palpitations, fainting Denies nausea, diarrhea, constipation Denies chronic pain All other systems reviewed negative - Current Medical Problems: None noted Medical History Cardiac HX: Denies TBI Hx: denies Seizure Hx: denies FAIZAN Hx: denies Diagnoses Schizoaffective disorder, bipolar type, current episode manic Assessment Rufino is a 25 year old who presents for further evaluation and treatment of schizoaffective disorder, has been off his medication for a few months, psychotic symptoms continue to improve, is preoccupied on assessment, ongoing negative symptoms include flat affect, poverty of thought/speech, avolition, sterotypie hand gestures still occurring. He remains highly guarded and hyperfocused on going home. Will continue paliperidone for treatment of schizoaffective disorder, will initiate treatment with [facility] on Thursday. Will continue clonidine as needed for anxiety- HR and BP have been periodically high, EKG wnl. Will schedule trazodone for sleep, has found effective. Safety risk: low risk of imminent self-harm, low risk of externalized violent behaviors Plan Continue clonidine 0.1 as needed for anxiety TID Start Invega [facility] 234 mg IM Thursday before discharge Continue paliperidone ER 12 mg po QHS Continue hydroxyzine 50 mg as needed for anxiety (will send script at discharge) Schedule trazodone 50 mg for sleep Continue Q15 min checks Continue Groups/Milieu Engagement Discharge Plan: - [facility] before discharge Thursday Schedule follow up for thursday02/10/25 for second loading dose of invega 156 mg IM to home with scheduled follow ups for outpatient therapy and medication management No Access to firearms. Spent approximately 30 minutes reviewing records and test results, assessing and treatment planning, completing care coordination and documenting the encounter. Discussed risks, including possible adverse effects, and benefits of treatment recommendations including no treatment. Voice recognition software may have been used to dictate this note. There may be errors due to use of such software. Reporting of serious errors is appreciated. Antibiotic Ordered?: No Objective Vitals Vital Signs Date Time Temp Pulse Resp B/P (MAP) Pulse Ox O2 Delivery O2 Flow Rate FiO2 01/30/25 08:00 98.2 88 18 121/61 (81) 96 Room Air Lab Results: 01/29/25201301/29/252013 Problem\\Assessment\\Plan Problems/Diagnosis: (1) Schizoaffective disorder, bipolar type CODING VISIT-PSYCHIATRY Date of Service: Jan 30, 2025 Billing Provider: MARILYN VASQUEZ DNP Psych Common Visit Codes: [id number] INP/OBS CARE(Mod) MARILYN VASQUEZ DNP Jan 30, 2025 15:57
[2025-01-30 19:00] VITALS: RESP 18; O2SAT 97
[2025-01-30 20:00] VITALS: BP 137/87; PULSE 109; RESP 18; TEMP 97.9; O2SAT 97
[2025-01-31 07:05] VITALS: BP 125/79; PULSE 106; RESP 16; TEMP 97.5; O2SAT 96
[2025-01-31] MEDS: paliperidone palmitate inj 234 MG/1.5 ML SYRINGE IM ONE (08:32)
--- NOTE | 2025-01-31 09:38 | DISCHARGE SUMMARY ---
Discharge Summary Providers to CC ~ Discharge Summary Admission Diagnosis: Schizoaffective disorder, bipolar type Discharge Diagnosis\\Comment: stable Operations\\Procedures: none Consultants: hospitalist Complications: none Condition on DC: Stable 2 or more antipsychotic used: Yes 2/more antipsychotic addressed: Yes Does Patient smoke: No Smoking education given.: No Discharge Summary: Admission date: 01/22/25 Length of stay: 7 days Status: 5250 HPI: Admitted on 01/22/25 on a 5150 for danger to self, was acting erratically- stopped medication a few months ago. Psychiatric History Age of initial treatment: 23 for really bad anxiety Outpatient: [facility] (missed last months appointment) Inpatient: [facility] on 07/2024 for psychosis, previously hospitalized in [place], up to a total of 3-4 previous hospitalizations. 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 Access to firearms: denies Hx of suicide attempts: denies Hx of self-harm: hx of cutting wrists Hx of violence: denies Legal hx: deneis Historical Psych Medications: aripiprazole, gabapentin, escitalopram, quetiap ine, vyvanse Substance Use History Over the counter medications: Caffeine: denies Nicotine: denies Alcohol: a beer (once per week) Cannabis: denies Stimulants: denies Opioids: denies Hx of IVDU: denies Other (Inhalants, Hypnotics, Hallucinogens, Rx): denies DUI: denies treatment/rehab hx: denies Gambling: denies No known hx of IVDU No known hx of meeting criteria for a substance use disorder Social history [place] [facility], parents , old brother. Unstable childhood including some periods of homelessness, was primarily raised by mother who is bipolar. 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 Current Environment Living Situation: with his dad in [place] for the past two years, states the last time he worked was two years, has a dog named bear. [place] Relationships: family Spiritual: God Hobbies/ Other interests: watching football, video games Hx: was briefly in the but left due to "bizarre behavior at age 18. HOSPITAL COURSE: Poor sleep 0-2 hours initial few days in the hospital, significant anxiety and distress- difficulty verbalizing the thought process. Pacing the unit, preo ccupied with discharge, not engaged in treatment. Improvement in positive symptoms of schizophrenia with titration of paliperidone. Today on Assessment: Positive mood, optimistic, He wants to move forward with an independent life. Motivated for his future- would like to be a vet or a veterans services specialist. Review of Psychiatric Symptoms: Mood: denies depression, reasons to live: finding new things to enjoy in life like new books, new sports, learning. Suicide/self-harm: denies Sleep: good Appetite: adequate- eating three meals a day Energy: increased- pacing the unit Anxiety: denies anxiety today, has been talking with his peers and feels no longer worried about what to do because has more plans. Irritability: endorses Homicidal/Anger: denies Hallucinations/Paranoia: lessened, still preoccupied- still making slight flicking hand gestures occasionally Trauma symptoms: denies Symptoms related to substance withdrawal: denies Mental Status Evaluation General Appearance: disheveled hair, beanie sweat pants, malordrous Eye contact: wnl Demeanor: engaged Orientation: to person, place, time, situation Speech: Appropriate rate/rhythm/volume Psychomotor Activity: wnl Abnormal Body Movements: none observed Gait: steady Mood: anxious Affect: flat Suicidality: denies suicidal ideation Homicidally: denies Thought content: paranoia, poverty of thought Thought process: disorganized Thought perceptions: none noted Memory: impairment notable Attention: preoccupied (alert and oriented x4) Insight: fair Judgment: fair Review of symptoms Denies malaise, other flu like symptoms Denies falls, fatigue, weakness, confusion, dizziness, memory loss Denies tingling/numbness, tremor Denies SOB, chest pain, palpitations, fainting Denies nausea, diarrhea, constipation Denies chronic pain All other systems reviewed negative Current Medical Problems: None noted Medical History Cardiac HX: Denies TBI Hx: denies Seizure Hx: denies FAIZAN Hx: denies Discharge Diagnoses: Schizoaffective disorder, bipolar type, current episode manic Discharge Assessment: Rufino is a 25 year old who presents for further evaluation and treatment of schizoaffective disorder, has been off his medication for a few months, psychotic symptoms have continued to improved with paliperidone. Persistent residual negative symptoms include flat affect, poverty of thought/speech, avolition, stereotypy hand gestures still occurring. He presents as goal directed, optimistic about his future, agreeable to continue psychiatric treatment as a rivera method to attain his goals and manage his mental health. Will continue trazodone for sleep and hydroxyzine for anxiety. Safety risk: low risk of imminent self-harm, low risk of externalized violent behaviors Discharge Plan: to home with father Ivonne VINCENT 234 mg IM Thursday before discharge Second loading dose of Invega 156 mg IM on February 07 Follow up appointments [facility]ENT 234 mg IM due March 01 Continue hydroxyzine 50 mg as needed for anxiety (will send script at discharge) Continue trazodone 50 mg for sleep Follow up appointments scheduled for medication management (scheduled by SW see note) through [facility] Safety plan established, reviewed, copy sent home (copy in the chart) No Access to firearms. Spent approximately 30 minutes reviewing records and test results, assessing and treatment planning, completing care coordination and documenting the encounter. Discussed risks, including possible adverse effects, and benefits of treatment recommendations including no treatment. Voice recognition software may have been used to dictate this note. There may be errors due to use of such software. Reporting of serious errors is appreciated. *Problems/Diagnosis: (1) Schizoaffective disorder, bipolar type Status: Chronic Total Time Spent on D/C: > 30 Minutes CODING VISIT-PSYCHIATRY Date of Service: Jan 31, 2025 Billing Provider: MARILYN VASQUEZ DNP Psych Common Visit Codes: [id number] DISCH DAY <30min MARILYN VASQUEZ DNP Jan 31, 2025 09:38
== END 2025-01-31 09:30 | disposition home or self-care (01) | DRG 885 ==
LOC: ADULT MH 15:00
PROVIDERS: ADMIT Psychiatry & Neurology Psychiatry; ATTEND Psychiatry & Neurology Psychiatry
PROC: GZHZZZZ Group Psychotherapy (ICD-10-PCS; principal; 2025-01-23)
DX: F25.0 Schizoaffective disorder, bipolar type (principal); R45.851 Suicidal ideations; F41.9 Anxiety disorder, unspecified; Z79.899 Other long term (current) drug therapy; Z87.891 Personal history of nicotine dependence; Z91.52 Personal history of nonsuicidal self-harm
CPT/HCPCS: 36415; 71046; 80053; 80061; 83721; 85007; 85025; 87081; 93005; 99285; J2426; Q0177